=== PATIENT | female | born 1950 | race American Indian/Alaskan Native ===

== ENCOUNTER 2020-08-14 22:37 | Inpatient (IN) | payer OTHER ==
[~2020-08-14] VITALS: Ht 167.6 cm; Wt 73.9 kg
--- NOTE | ~2020-08-14 | EMS ---
[address] [address] EMS Patient Care Report Name: NESTOR WILSONANNINE Room #: REG KIRSTEN Mustafa#: [id number] Admission: 08/14/20 Attend Phys: Discharge: Date of : 54 Report #: [id number] THIS REPORT FOR: //name// Report Transmitted: 08/14/2020 23:59 EMS Care Summary [facility] Incident [id number] @ 08/14/2020 21:54 Incident Location [address] [place] [address] Patient NESTOR WILSON Female, 70 Years 1950 Patient Address [address] [place] [address] Patient History Hypertension (HTN),Stroke/CVA, Patient Allergies Other drug allergy, Patient Medications Levothyroxine, Rosuvastatin, Gabapentin, Torsemide, Trulicity, Iron, Metoprolol, Clopidogrel, Chief Complaint Abd pain Disposition Transported No Lights/[place] Dispatch Reason Sick Person Transported To [facility] Units dispatched to the residence of a 70 year old female pt with a chief complaint of abd pain. Upon arrival crew located pt laying on a couch. Pt presented with a patent airway and warm dry skin. Pt on scene stated [facility] [address] [place] [address] EMS Patient Care Report Name: NESTOR WILSON Room #: REG KIRSTEN Mustafa#: [id number] Admission: 08/14/20 Attend Phys: Discharge: Date of : 54 Report #: [id number] that pt had been complaining of abd pain for 5 days. Pt stated she was discharged from a hospital 4 days prior and reported the abd pain started while she was hospitalized. Pt stated that the hospital told her she had a abnormal E-coli level and put her on antibiotics. Pt stated the pain had gotten worse. Pt was placed on stretcher by crew and secured using straps. 3 Lead ECG was applied and pt was monitored for rhythm changes. Pt stated she had been having mobility issues for several months and was no longer able to walk. Pt was unable to pinpoint abd pain. Palpation of abd revealed a soft abd and pt complained of worsened pain when palpating the upper and lower left quadrants. Pt stated that she had been unable to eat or drink anything for the last 4 days as well. Pt was unsure of last bowel movment. Pt rated pain a 6/10 and described it as a "cramping" pain. Pt denied chest pain or SOA. Pt denied recent fever or cough. Pt was transported to [facility] without incident and care was transferred to ED staff. Initial Vitals @22:11P: 94,BP: 152/88,SpO2: 100, @21:59P: 105,BP: 150/85,Pain: 6/10,GCS: 15, @22:29P: 93,BP: 140/81,Pain: 6/10,GCS: 15,SpO2: 99, Assessments @21:59MENTAL:No Abnormalities,SKIN:No Abnormalities,HEENT:Head/Face: No Abnormalities,Eyes: No Abnormalities,Neck/Airway: No Abnormalities,LUNG SOUNDS:General: Nausea,Left Upper: Tenderness,Right Lower: Tenderness,Right Upper: Tenderness,Left Lower: Tenderness,ABDOMEN:General: Nausea,Left Upper: Tenderness,Right Lower: Tenderness,Right Upper: Tenderness,Left Lower: Tenderness,PELVIS//GI:No Abnormalities,EXTREMITIES:Capillary Refill: Right Upper: < 2 Sec,Left Arm: No Abnormalities,Right Arm: No Abnormalities,Left Leg: No Abnormalities,Right Leg: No Abnormalities,PULSE:Radial: 2+ Normal,NEURO:No Abnormalities,@22:20MENTAL:No Abnormalities,SKIN:No Abnormalities,HEENT:Head/Face: No Abnormalities,Eyes: No Abnormalities,Neck/Airway: No Abnormalities,LUNG SOUNDS:General: Nausea,Right Upper: Tenderness,Left Upper: Tenderness,Right Lower: Tenderness,Left Lower: Tenderness,ABDOMEN:General: Nausea,Right Upper: Tenderness,Left Upper: Tenderness,Right Lower: Tenderness,Left Lower: Tenderness,PELVIS//GI:No Abnormalities,EXTREMITIES:Capillary Refill: Right Upper: < 2 Sec,Left Arm: No Abnormalities,Right Arm: No Abnormalities,Left Leg: No Abnormalities,Right Leg: No Abnormalities,PULSE:Radial: 2+ Normal,NEURO:No Abnormalities, Impression Abdominal Pain Procedures @21:59ALS AssessmentResponse: UnchangedSucceeded@22:103-Lead ECGResponse: UnchangedSucceeded [address] [address] EMS Patient Care Report Name: NESTOR WILSON Room #: REG KIRSTEN Mustafa#: [id number] Admission: 08/14/20 Attend Phys: Discharge: Date of : 54 Report #: [id number] Timeline 21:52,Call Received 21:52,Psap Call 21:54,Dispatched 21:56,En Route 21:57,On Scene 21:58,At Patient 21:59,ALS Assessment,Response: UnchangedSucceeded, 21:59,BP: 150/85 M,PULSE: 105,RR: R,SPO2: Ox,ETCO2: ,BG: ,PAIN: 6,GCS: 15, 22:10,3-Lead ECG,Response: UnchangedSucceeded, 22:11,BP: 152/88 M,PULSE: 94,RR: R,SPO2: 100 Ox,ETCO2: ,BG: ,PAIN: ,GCS: , 22:12,Depart Scene 22:29,BP: 140/81 M,PULSE: 93,RR: R,SPO2: 99 Ox,ETCO2: ,BG: ,PAIN: 6,GCS: 15, 22:34,At Destination 22:46,Call Closed Disclaimer v1.1 Copyright 2020 [employer] This EMS Care Summary contains data elements from the applicable legal record (which may be displayed differently). It is designed to provide pertinent information for the following purposes: continuity of care, clinical quality, and state data reporting. The complete legal record is available to ED staff and administrators of the receiving hospital in [facility]'s Patient Tracker. All data is provided "as is."
[2020-08-14 22:37] VITALS: BP 164/84
[~2020-08-14 22:37] MED LIST: ATORVASTATIN CA40 MG PO; FARXIGA5 MG PO; LANTUS100 UNIT/M SUBQ; LEVOTHYROXINE 0.1 MG PO; LOPRESSOR100 M1 PO; MAXZIDE-25 MG1 EACH PO; POTASSIUM20 PO; PRENATAL PLUS1 EACH PO; VALACYCLOVIR1000 MG PO; VITAMIN B-12500 MCG PO
[2020-08-14 23:12] LABS: URINE BILIRUBIN NEGATIVE (Negative); URINE BLOOD 2+ (Negative); URINE CLARITY SL CLOUDY; URINE COLOR YELLOW; URINE GLUCOSE-RANDOM* TRACE (Negative); URINE KETONES NEGATIVE (Negative); URINE PROTEIN (DIPSTICK) 2+ (Negative); URINE SPECIFIC GRAVITY >= 1.030 (1.005-1.035); URINE UROBILINOGEN 0.2 E.U./dl (0.2-1.0)
[2020-08-14 23:14] LABS: URINE LEUKOCYTES-REFLEX 1+ (Negative); URINE NITRITE-REFLEX POSITIVE (Negative)
[2020-08-14 23:16] LABS: HEMATOCRIT 25.3 % (37.0-47.0); HEMOGLOBIN 8.3 gm/dL (12.0-15.0); MCH 32.1 pg (26.0-34.0); MCHC 32.9 g/dL (28.0-37.0); MCV 97.7 fL (80.0-100.0); PLATELET COUNT 217 thou/uL (150-400); RBC 2.59 mil/uL (4.20-5.00); RDW 15.5 % (10.5-14.5); WBC 7.5 thou/uL (4.0-11.0)
[2020-08-14 23:31] LABS: CALCIUM 7.4 mg/dL (8.5-10.1); CASTS None Seen /LPF (None Seen); CREATININE 3.1 mg/dL (0.6-1.0); MAGNESIUM 1.6 mg/dL (1.8-2.4); MUCUS 0-3 Light strn/LPF (None Seen); SQUAMOUS >10 Many /LPF (0-3); TRANSITIONAL EPITHEL CELL >10 Many /LPF (None Seen); URINE WBC-REFLEX >25 Many /HPF (0-5); WBC CLUMPS Moderate (None Seen)
[2020-08-14 23:32] LABS: BACTERIA-REFLEX >30 Many /HPF (None Seen); CRYSTALS None Seen /LPF (None Seen); URINE RBC 3-10 Few /HPF (0-2)
[2020-08-14 23:33] LABS: POTASSIUM 5.3 mmol/L (3.5-5.1)
[2020-08-14 23:42] LABS: ABSOLUTE NEUTROPHILS 6.5 thou/uL (1.4-8.2)
[2020-08-14 23:43] LABS: LARGE PLATELETS OCCASIONAL
[2020-08-15] MEDS ORDERED: GABAPENTIN 100100 MG PO (02:27)
[2020-08-15] MEDS ORDERED: ROSUVASTATIN CA20 MG PO (02:28)
[2020-08-15] MEDS ORDERED: TRULICITY1.5 MG/0.5 SUBQ (02:29)
[2020-08-15] MEDS ORDERED: ECOTRIN325 MG PO (02:29)
[2020-08-15] MEDS ORDERED: LEVO-T100 MCG PO (02:30)
[2020-08-15] MEDS ORDERED: ANTACID650 MG PO (02:31)
[2020-08-15] MEDS ORDERED: TORSEMIDE20 MG PO (02:32)
[2020-08-15] MEDS ORDERED: SLOW FE 160MG160 MG PO (02:33)
[2020-08-15] MEDS ORDERED: COLESTIPOL HCL1 G1 PO (02:34)
[2020-08-15] MEDS ORDERED: CALCIUM ACETAT667 M2 PO (02:34)
[2020-08-15] MEDS ORDERED: ASPIR 8181 MG PO (02:35)
--- NOTE | 2020-08-15 07:18 | EKG ---
[address] [employer] 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: chantell gilliam rn : 1950 Requested By: Royce Gibbs Order Number: [id number] MD: Turner Beasley Measurements Intervals [place] Rate: 90 P: 66 PA: 219 QRS: -46 QRSD: 143 T: 21 QT: 403 QTc: 493 Interpretive Statements Sinus rhythm Borderline prolonged PA interval RBBB and LAFB Compared to ECG 04/15/2007 07:55:13 Left anterior fascicular block now present Right bundle-branch block now present Poor R-wave progression no longer present Electronically Signed On 08-15-2020 7:18:04 DIE SETTER by Turner Beasley [email or web address] <ELECTRONICALLY SIGNED> By: Turner Beasley MD, FACC 08/15/20 0718 2324 [id number] Turner Beasley MD, FAC /EPI
--- NOTE | 2020-08-15 14:34 | NUR ---
70-year-old female who presents to the emergency department this evening with complaints of abdominal pain, decreased appetite, generalized weakness and fatigue at home. She reports that she was recently seen at [facility] and discharged home on 08/10/2020 she was hospitalized for chronic renal failure and the need for hemodialysis. She is supposed to be starting hemodialysis Saturday and Saturday the week of 08-15-2020. She also reports that she was diagnosed with a E. coli infection in her stool and has been on outpatient Cipro treatment. Spouse states he is unable to care for her secondary to a diagnosis of Failure to Thrive along with right side paralysis from a previous stroke. Patient is retired and spouse is Torey Pulliam with home number [phone] and Work number listed as [phone]. Found to have a UTI along with Abdominal pain with GI consulted. Patient had been admitted and GI has ordered for an EGD and Colonoscopy. Of note, COVDI Antigen is negative in the ED patient did undergo an Gastric Bypass in 2007. As patient progresses CM to follow for discharge needs.
[2020-08-15 23:06] LABS: GLYCOHEMOGLOBIN (HGB A1C) 4.5 % (4.8-5.6)
[2020-08-16 05:25] LABS: HEMATOCRIT 24.7 % (37.0-47.0); HEMOGLOBIN 8.1 gm/dL (12.0-15.0); MCH 31.9 pg (26.0-34.0); MCHC 32.6 g/dL (28.0-37.0); MCV 97.7 fL (80.0-100.0); RBC 2.53 mil/uL (4.20-5.00); RDW 15.2 % (10.5-14.5); WBC 5.8 thou/uL (4.0-11.0)
[2020-08-16 05:29] LABS: CALCIUM 7.2 mg/dL (8.5-10.1); MAGNESIUM 1.7 mg/dL (1.8-2.4)
[2020-08-16 05:34] LABS: CREATININE 1.6 mg/dL (0.6-1.0)
[2020-08-16 05:35] LABS: POTASSIUM 2.9 mmol/L (3.5-5.1)
[2020-08-16 06:52] VITALS: BP 153/76
[2020-08-16 07:09] VITALS: BP 136/76
[2020-08-16 08:12] VITALS: BP 150/77
--- NOTE | 2020-08-16 08:45 | NUR ---
assumed care at 0730. 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 pt is a&o x 4. pt has bruises on face and neck. pt has swelling on both arms and feet. lungs and heart sounds are regular. soft abd. IV is intact and shows no signs of redness or swelling. right upper chest is dialysis port and is intact and shows no signs of redness or swelling. pt complains of weakness but denies n/v/d. pt has not have diarrhea in one week. pt denies pain. i have informed dr. chavez regarding critical values. ER informed me with this information. I am not sure if they told the doctor so I have address this information to the doctor along with Cr and Mg level. ra. medical records are being faxed to [facility] per request on order. will continue to monitor pt.
--- NOTE | 2020-08-16 14:47 | NUR ---
WOUND CONSULT; POSSIBLE ABCESS? INDURATION, SWELLING/FLUID? ERYTHEMA WITH TENDERNESS. RECOMMENDATION; CONSULT DR CISSE FOR MEDICAL INTERVENTION. DISCUSSED WITH GEN
--- NOTE | 2020-08-16 15:09 | NUR ---
ASSESSMENT: CM REVIEWED CHART AND SPOKE WITH PT. PT IS ALERT AND ORIENTED X4. PT WAS ADMITTED DUE TO COMPLAINING OF ABDOMINAL PAIN AND HAS HX OF CVA. PT CURRENTLY REFUSED GETTING AN EGD AT THIS TIME. PT LIVES AT HOME WITH HER . PT REPORTS HAVING A RAMP TO ENTER HER HOME. PT STATES SHE HAS A CANE AND WALKER AT HOME WELL A WHEELCHAIR. PT REPORTS THAT HER BEDROOM IS ON THE SECOND LEVEL BUT SHE REPORTS THAT SHE MAINLY STAYS ON THE MAIN LEVEL TO AVOID STEPS. PT REPORTS THAT SHE HAS HAD [facility] IN THE PAST BUT NOT RECENTLY. CM DISCUSSED ROLE. PT WOULD BE WILLING TO POSSIBLE HH BUT STATES SHE WANTS TO SEE HOW SHE PROGRESSES BEFORE A REFERRAL IS SENT. 5N HAS BEEN CONSULTED TO ALSO SEE PATIENT. PT WAS TO START DIALYSIS AT [facility] IN [place] BUT ENDED UP IN THE HOSPITAL. CM FAXED CLINICAL TO [facility] AND AWAITING A CALL BACK. CM WILL CONTINUE TO FOLLOW TO ASSIST NEEDED.
[2020-08-16 17:04] VITALS: BP 152/67
[2020-08-16 20:10] VITALS: BP 141/69
--- NOTE | 2020-08-17 04:00 | NUR ---
PT ALERT AND ORIENTED WITH ALOT OF ANXIETY. BLE 2+ EDEMA.DENIES SOA, NO COUGH. OLIGURIA, ANIBAL TO D/D.SWALLOWS WITH NO DIFFICULTIES.REQUIRES Q2 HR TURNS.REFUSED HER HS TRULICITY STATING LOW BS @ 84.CONTINUES TO LOOK WEAK.
[2020-08-17 05:50] VITALS: BP 161/71
[2020-08-17 06:36] LABS: ALBUMIN 1.6 g/dL (3.4-5.0); CALCIUM 6.7 mg/dL (8.5-10.1); CREATININE 2.2 mg/dL (0.6-1.0); PHOSPHORUS 1.9 mg/dL (2.5-4.9); POTASSIUM 3.8 mmol/L (3.5-5.1)
--- NOTE | 2020-08-17 08:31 | NUR ---
assumed care at 0700. pt is a&o x4. pt has regular heart sounds with diminished lung sounds. pt abd is soft except for the mid abd. there is a hard lump on her abd. asked pt if she knew anything about this. pt denies that she knows anything about it as this is her first time noticing it after me. open sore on buttock and applied zguard. pt is being adjusted q2. IV is intact and shows no signs of redness or swelling. fall precaution. call light within reach. pt denies any pain, nausea, vomitting. pt is a set up. swelling on LLE but thee is no swelling on upper extremity. pt has bruises on face and neck. port on right chest is intact and shows no signs of redness or swelling. RA. VSS. will continue to monitor. SCD hose are in place. low air mattress will be applied to bed today. couldnt get the low air mattress due to outlet. contacted maintenace to come see bed outlets. will continue to monitor
[2020-08-17 08:37] VITALS: BP 143/60
--- NOTE | 2020-08-17 09:33 | NUR ---
Pt seen this am due to positive nutrition admission screen. 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 Pt states her appetite is a million times better and she is eating well. Wt reported at 167# on admit per pt, currently stable at 163#. No PU noted, skin is intact. Pt with no nutritional questions or concerns. Pt is low nutrition risk.
--- NOTE | 2020-08-17 12:00 | NUR ---
ON-GOING ASSESSMENT: CM REVIEWED CHART AND SPOKE WITH ATTENDING WHO REPORTS PT IS NEARING DISCHARGE GOALS. CM SPOKE WITH PT ABOUT POSSIBLE NEED FOR POST ACUTE CARE. PT STATES SHE IS ABSOLUTELY NOT GOING TO A SNF WHERE HER CANNOT VISIT HER AND STATES SHE IS REFUSING THAT. CM NOTIFIED HER THAT SHE MAY QUALIFY FOR 5N ADMISSION BUT SHE WOULD HAVE TO PARTICIPATE WITH THERAPY TO SEE IF SHE IS A CANIDATE AND WOULD BE ALLOWED TO VISIT THERE. PT BECAME TEARFUL STATING SHE IS NOT WANTING TO BE AWAY FROM HOME AND SHE IS WANTING TO GO HOME WITH . CM DISCUSSED THAT PHYSICAL THERAPY RECOMMENDATION WAS FOR POST ACUTE CARE. PT STATES SHE IS WANTING A REFERRAL TO BE SENT TO [facility]. CM FAXED REFERRAL. PT STATING SHE IS WANTING TO LEAVE TOMORROW WITH HOME HEALTH. CM NOTIFIED ATTENDING AND AWAITING INPUT AT THIS TIME.
[2020-08-17 13:47] VITALS: BP 143/60
[2020-08-17 17:41] VITALS: BP 146/58
[2020-08-17 19:45] VITALS: BP 136/77
[2020-08-17 20:20] VITALS: BP 136/77
--- NOTE | 2020-08-18 04:00 | NUR ---
PT SLEPT MOST OF THE NOC.REQUIRES HELP WITH REPOSITIONING.DENIES PAIN. AFEBRILE. DIALYSIS THIS AM. POSSIBLE D/C.
[2020-08-18 08:06] VITALS: BP 156/67
[2020-08-18 11:05] LABS: URINE BILIRUBIN NEGATIVE (Negative); URINE BLOOD TRACE (Negative); URINE CLARITY CLEAR; URINE COLOR YELLOW; URINE GLUCOSE-RANDOM* NEGATIVE (Negative); URINE KETONES NEGATIVE (Negative); URINE LEUKOCYTES TRACE (Negative); URINE NITRITE NEGATIVE (Negative); URINE PROTEIN (DIPSTICK) 2+ (Negative); URINE SPECIFIC GRAVITY 1.015 (1.005-1.035); URINE UROBILINOGEN 0.2 E.U./dl (0.2-1.0)
[2020-08-18 11:27] LABS: SQUAMOUS 0-3 Few /LPF (0-3)
[2020-08-18 11:28] LABS: BACTERIA 1-9 Few /HPF (None Seen); CASTS None Seen /LPF (None Seen); CRYSTALS None Seen /LPF (None Seen); URINE RBC 3-10 Few /HPF (0-2)
[2020-08-18 14:29] VITALS: BP 143/60
--- NOTE | 2020-08-18 14:55 | NUR ---
PT DISCHARGING TODAY TO HOME WITH [facility] FAXED DC ORDERS/SUMMARY SPOKE WITH DEDE IN INTAKE SHE RECEIVED DC ORDERS AND PLAN ON SEEING PT ON SATURDAY AND WILL CALL TO ARRANGE VISIT WITH PT.
--- NOTE | 2020-08-18 15:05 | NUR ---
PT HAS ORDERS TO D/C HOME WITH HH TODAY ([facility]). 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 CM SPOKE WITH PT WHO REPORTS SHE HAS ALL DME NEEDED AT HOME. PT REPORTS NO FURTHER NEEDS FROM CM.
--- NOTE | 2020-08-18 16:35 | NUR ---
Assumed care of pt. at 0700. Pt. is anxious but cooperative. Pt. was cleared for discharge by Dr. Moses. Pt. requested to leave catheter in, this was cleared by Dr. Moses. Pt. was discharged from hospital. It was shortly there after that I realized that the IV had not been removed from SADIA. Torey contacted, he stated that he was using the [facility] Department to transport the pt. back into her home and that they could remove the IV. Nursing supervisor whipped topping Thelma contacted about issue and confirmed that this would be an acceptable process as long as it was confirmed with [facility] that it had been removed. [facility] contacted, fire deputyoel Caldwell answered and stated that [employer] [facility] would be removing IV. [facility] called me and confirmed over the phopne that he had remoced the 22G IV from Left Upper Arm of pt. at 1600.
[2020-08-19 03:06] LABS: HEPATITIS B SURFACE AG Negative (Negative)
--- NOTE | 2020-08-22 11:21 | HC ---
[facility] [place] [address] CONSULTATION Name: NESTOR CHAPA Room #: 444-P [facility] IN M.R.#: [id number] Admission: 08/15/20 Attend Phys: Darian Witt MD Discharge: 08/18/20 Date of : 54 Report #: [id number] THIS REPORT FOR: cc: Shaunna Hebert Christine L. DO Stephens, Thad A. MD ~ DATE OF SERVICE: 08/17/2020 WOUND CARE CONSULTATION PERSONAL PHYSICIAN: Dr. Shaunna Hebert. CHIEF COMPLAINT: Gluteal ulcer. HISTORY OF PRESENT ILLNESS: This is a 70-year-old white female with past medical history of coronary artery disease, end-stage renal disease, on hemodialysis, peripheral neuropathy, who was admitted to the hospital with generalized weakness and abdominal pain. The patient is currently being seen by the GI service as well as Nephrology. Wound care nurse had been notified about an ulcer noted on admission that she was concerned about being a possible abscess; however, we have been consulted to evaluate the patient. The patient denies any other associated wounds. The patient denies any associated pain. PAST MEDICAL HISTORY: Significant for diabetes; hypertension; end-stage renal disease, on hemodialysis; gastroesophageal reflux disease; previous CVA; coronary artery disease with stents; status post gastric bypass. CURRENT MEDICATIONS: Multiple, I reviewed the patient's medication list. DRUG ALLERGIES: MILK, MYCINS. SOCIAL HISTORY: The patient does not smoke or drink alcohol. FAMILY HISTORY: Not pertinent to current medical condition. REVIEW OF SYSTEMS: CONSTITUTIONAL: The patient denies fevers or chills. NEUROLOGIC: The patient denies numbness, tingling, weakness in arms or legs. EYES: No complaints. ENT: No complaints. CARDIAC: The patient has chronic lower extremity edema, but denies chest pain or palpitations. RESPIRATORY: The patient denies shortness of breath, cough or wheezes. GASTROINTESTINAL: The patient denies nausea, vomiting, abdominal pain at this time; however, has had abdominal pain chronically. [facility] [address] [place] [address] CONSULTATION Name: MAGGIE CHAPAORAShonda Barrientos Room #: 444-P [facility] IN M.R.#: [id number] Admission: 08/15/20 Attend Phys: Darian Witt MD Discharge: 08/18/20 Date of : 54 Report #: [id number] GENITOURINARY: The patient denies urgency or frequency. MUSCULOSKELETAL: No complaints. SKIN: There is a stage 3 ulcer to her left buttock. PHYSICAL EXAMINATION: VITAL SIGNS: Temperature 36.8, pulse 89, respirations 18, BP 143/60. GENERAL: This is an alert and oriented x 3, obese white female who is in no obvious distress. HEENT: Normocephalic, atraumatic. Mucous membranes are somewhat dry. Pupils are round. Sclerae white. NECK: Without JVD. LUNGS: Slightly diminished breath sounds heard throughout. HEART: Regular. ABDOMEN: Obese, soft, nontender. Evaluation of left gluteal region reveals a stage 3 decubitus ulcer, which is clean and granulating. Periwound is otherwise intact. There is minimal serosanguineous drainage noted without odor. There are no signs of erythema, warmth or cellulitis. EXTREMITIES: The patient moves all extremities without difficulty. Bilateral heels are intact. NEUROLOGIC: Cranial nerves 2-12 are grossly intact. The patient does have right sided weakness, which is mild. LABORATORY DATA: White count 5.8, hemoglobin 8.1, BUN 18, creatinine 2.2, albumin 1.6. IMPRESSION: 1. Stage 3 decubitus ulcer, left buttock without signs of infection. 2. History of abdominal pain with recent Escherichia coli infection. 3. End-stage renal disease. 4. Hypothyroidism. 5. Hypertension. 6. Diabetes mellitus type 2. 7. History of cerebrovascular accident with right-sided weakness. 8. Severe protein-calorie malnutrition with an albumin of 1.6. PLAN: We will start Z-Guard to the pressure ulcer and leave open to air, changes twice daily and p.r.n. We will put the patient on low air loss mattress and have her turned every 2 hours. We will make sure we maximize patient's oral protein supplementation for healing. PT and OT will be consulted to help with the patient's strengthening and ADLs. Please continue all other current medications. <ELECTRONICALLY SIGNED> By: Blu Chandler MD 08/22/20 1121 1800 57 Blu Chandler MD /nt
== END 2020-08-18 15:32 | disposition home health service (06) | DRG 371 ==
LOC: ER 22:37 → 4S 08-15 00:34 → EROBS 08-15 00:34 → 4S 08-16 07:17
PROVIDERS: Emergency Medicine; Internal Medicine; Internal Medicine Nephrology; Nurse Practitioner Family; ADMIT Internal Medicine; ATTEND Internal Medicine
PROC: 5A1D70Z Performance of Urinary Filtration, Intermittent, Less than 6 Hours Per Day (ICD-10-PCS; principal; 2020-08-15)
PROC: 5A1D70Z Performance of Urinary Filtration, Intermittent, Less than 6 Hours Per Day (ICD-10-PCS; 2020-08-18)
DX: A04.4 Other intestinal Escherichia coli infections (principal); L89.323 Pressure ulcer of left buttock, stage 3; N18.6 End stage renal disease; E43 Unspecified severe protein-calorie malnutrition; N39.0 Urinary tract infection, site not specified; I69.351 Hemiplegia and hemiparesis following cerebral infarction affecting right dominant side; I12.0 Hypertensive chronic kidney disease with stage 5 chronic kidney disease or end stage renal disease; Z20.828 Contact with and (suspected) exposure to other viral communicable diseases; E03.9 Hypothyroidism, unspecified; Z91.011 Allergy to milk products; K21.9 Gastro-esophageal reflux disease without esophagitis; E11.22 Type 2 diabetes mellitus with diabetic chronic kidney disease; R62.7 Adult failure to thrive; D63.8 Anemia in other chronic diseases classified elsewhere; E78.5 Hyperlipidemia, unspecified; K27.9 Peptic ulcer, site unspecified, unspecified as acute or chronic, without hemorrhage or perforation; I25.10 Atherosclerotic heart disease of native coronary artery without angina pectoris; E11.42 Type 2 diabetes mellitus with diabetic polyneuropathy; Z90.710 Acquired absence of both cervix and uterus; Z90.49 Acquired absence of other specified parts of digestive tract; Z90.721 Acquired absence of ovaries, unilateral; Z88.8 Allergy status to other drugs, medicaments and biological substances; Z88.1 Allergy status to other antibiotic agents; Z98.84 Bariatric surgery status; Z68.26 Body mass index [BMI] 26.0-26.9, adult; Z95.5 Presence of coronary angioplasty implant and graft; Z79.82 Long term (current) use of aspirin; Z79.899 Other long term (current) drug therapy; Z99.2 Dependence on renal dialysis
CPT/HCPCS: 10195; 32100

== ENCOUNTER 2020-12-13 09:39 | Inpatient (IN) | payer OTHER ==
[~2020-12-13] VITALS: Ht 167.6 cm; Wt 68.5 kg
[~2020-12-13 09:39] MED LIST changes: +ANTACID650 MG PO; +ASPIR 8181 MG PO; +CALCIUM ACETAT667 M2 PO; +COLESTIPOL HCL1 G1 PO; +ECOTRIN325 MG PO; +GABAPENTIN 100100 MG PO; +LEVO-T100 MCG PO; -LOPRESSOR100 M1 PO; +METOPROLOL SUCC50 MG PO; +ROSUVASTATIN CA20 MG PO; +SLOW FE 160MG160 MG PO; +TORSEMIDE20 MG PO; +TRULICITY1.5 MG/0.5 SUBQ
[2020-12-13 09:40] VITALS: BP 157/70
[2020-12-13 10:18] LABS: ABSOLUTE NEUTROPHILS 6.3 thou/uL (1.4-8.2); BASOPHILS 0.9 % (0.0-2.0); EOSINOPHILS 2.2 % (0.0-3.0); HEMATOCRIT 29.7 % (37.0-47.0); HEMOGLOBIN 9.6 gm/dL (12.0-15.0); LYMPHOCYTES 12.6 % (24.0-44.0); MCH 32.9 pg (26.0-34.0); MCHC 32.3 g/dL (28.0-37.0); MCV 101.9 fL (80.0-100.0); MONOCYTES 8.8 % (1.0-8.0); PLATELET COUNT 190 thou/uL (150-400); POLYS 75.5 % (36.0-66.0); RBC 2.92 mil/uL (4.20-5.00); RDW 18.8 % (10.5-14.5); WBC 8.4 thou/uL (4.0-11.0)
[2020-12-13 10:26] LABS: ANION GAP 13 mmol/L (7-16); BUN 60 mg/dL (7-18); CALCIUM 6.8 mg/dL (8.5-10.1); CHLORIDE 114 mmol/L (98-107); CO2 18 mmol/L (21-32); CREATININE 3.5 mg/dL (0.6-1.0); GLUCOSE 78 mg/dL (74-106); POTASSIUM 3.8 mmol/L (3.5-5.1); SODIUM 145 mmol/L (136-145)
[2020-12-13 10:26] LABS: URINE BILIRUBIN NEGATIVE (Negative); URINE BLOOD TRACE (Negative); URINE CLARITY CLEAR; URINE COLOR YELLOW; URINE GLUCOSE-RANDOM* NEGATIVE (Negative); URINE KETONES NEGATIVE (Negative); URINE NITRITE-REFLEX NEGATIVE (Negative); URINE PROTEIN (DIPSTICK) 1+ (Negative); URINE UROBILINOGEN 0.2 E.U./dl (0.2-1.0)
[2020-12-13 10:29] LABS: URINE LEUKOCYTES-REFLEX 3+ (Negative)
[2020-12-13 10:36] LABS: ALBUMIN 1.8 g/dL (3.4-5.0); SGOT 17 U/L (15-37); SGPT 11 U/L (14-59); TOTAL BILIRUBIN 0.3 mg/dL (0.2-1.0); TOTAL PROTEIN 5.2 g/dL (6.4-8.2); TROPONIN-I <0.06 ng/mL (<0.06)
[2020-12-13 10:44] LABS: SQUAMOUS 0-3 Few /LPF (0-3); URINE WBC-REFLEX >25 Many /HPF (0-5); YEAST-REFLEX Present (None Seen)
[2020-12-13 10:45] LABS: BACTERIA-REFLEX 1-9 Few /HPF (None Seen); CASTS None Seen /LPF (None Seen); CRYSTALS None Seen /LPF (None Seen); MUCUS 0-3 Light strn/LPF (None Seen); URINE RBC 1-2 Rare /HPF (NONE SEEN)
[2020-12-13 11:24] LABS: PLATELET ESTIMATE NORMAL
[2020-12-13 11:25] LABS: ANISOCYTOSIS 2+; MACROCYTES 1+
[2020-12-13 12:13] VITALS: BP 143/79
[2020-12-13 12:27] VITALS: BP 119/63
[2020-12-13 12:30] VITALS: BP 94/71
--- NOTE | 2020-12-13 14:48 | NUR ---
ASSUMED CARE OF PATIENT AT 1300 AFTER ARRIVAL FROM ED. SYSTEMS ASSESSMENT COMPLETED BY CHARGE NURSE. EDUCATION AND HX COMPLETED ALONG W REST OF ADMISSION. SPOUSE AT BEDSIDE. IV FLUIDS INFUSING ON L W NO ISSUES. IV ATIVAN ADMINISTERED PER ANXIETY. SEEN BY DR. JUDD; NO NEW ORDERS. WILL CONTINUE TO MONITOR AND FOLLOW PLAN OF CARE
[2020-12-13 15:06] VITALS: BP 185/103
--- NOTE | 2020-12-13 16:03 | EKG ---
[address] [place] [address] ELECTROCARDIOGRAM REPORT Name: ARLETHARASELI WILSONNESTOR Floyd Room #: 452-P ADM IN .R.#: [id number] Admission: 12/13/20 Attend Phys: Reid Smyth MD Discharge: Date of : 54 Report #: [id number] [facility] ED Test Date: 2020-12-13 Test Time: 10:36:22 Pat Name: NESTOR WILSON Department: Room: [facility] Gender: F Employee Welfare Manager: mirtha : 1950 Requested By: Judd Choe Order Number: [id number] MD: Antonio Ball Measurements Intervals [place] Rate: 102 P: 0 [place]: 195 QRS: -68 QRSD: 132 T: 0 QT: 385 QTc: 502 Interpretive Statements Sinus tachycardia Paired ventricular premature complexes Right bundle branch block Anterior infarct, age indeterminate Baseline wander in lead(s) V1 Compared to ECG 08/14/2020 23:24:45 Ventricular premature complex(es) now present Anterior Q waves are now present Electronically Signed On 12-13-2020 16:03:24 CDT by Antonio Ball [email or web address] <ELECTRONICALLY SIGNED> By: Antonio Ball MD, [facility] 12/13/20 1603 1036 1036 Antonio Ball MD, [facility] /EPI
[2020-12-13 23:08] VITALS: BP 146/63
--- NOTE | 2020-12-14 03:41 | NUR ---
PATIENT AOX2 CONFUSED AND FORGETFUL. PATIENT INCONTIENT OF BOWEL PERICARE, CATH CARE DONE NEEDED. BARRIER CREAM APPLIED NEEDED. PATIENT URINE IS YELLOW IN COLOR NO ODOR. PATIENT ENCOURAGED FLUIDS. PATIENT TURNED Q 2 HOURS. PATIENT ON 1 L OF OXYGEN PER NC NO SOA OR DISTRESS NOTED NEEDED. FALL PRECAUTION IN PLACE. PATIENT IN BED ASLEEP AT THIS BREATHING REGULAR AND UNLABOURED.
[2020-12-14 05:09] LABS: HEMATOCRIT 25.1 % (37.0-47.0); HEMOGLOBIN 7.9 gm/dL (12.0-15.0); MCH 32.3 pg (26.0-34.0); MCHC 31.6 g/dL (28.0-37.0); MCV 102.2 fL (80.0-100.0); RBC 2.46 mil/uL (4.20-5.00); RDW 18.8 % (10.5-14.5); WBC 6.7 thou/uL (4.0-11.0)
[2020-12-14 05:15] LABS: CALCIUM 6.2 mg/dL (8.5-10.1); CREATININE 3.2 mg/dL (0.6-1.0); POTASSIUM 3.5 mmol/L (3.5-5.1)
[2020-12-14 08:00] VITALS: BP 164/80
--- NOTE | 2020-12-14 11:31 | NUR ---
PT ADMITTED RELATED TO TREY,UTI. CM REVIEWED CHART AND SPOKE WITH CARE TEAM. CM MET WITH PT AND SPOUSE AT BEDSIDE THIS DAY. PT APPEARED TO BE SLEEPING DURING ASSESSMENT AND SPOUSE ANSWERED ALL QUESTIONS. HE INDICATED THAT THEY RESIDE IN A HOUSE WITH A RAMP TO ENTER AND NO STEPS PT NEEDS TO NAVIGATE INSIDE. SPOUSE INDICATED THAT THEY HAVE DME IN THE HOME SETTING THAT THEY ARE ABLE TO UTILIZE. SPOUSE INDICATED THAT THEY HAVE [facility] FOLLOWING FOR PT'S CATHETER CARE IN THE HOME SETTING. CARE TEAM INDICATED PT MAY BE MEDICALLY SATBLE TO DC TOMORROW HOME WITH SERVICES. DR. SON FOLLOWING.
--- NOTE | 2020-12-14 18:32 | NUR ---
Assumed pt care at 7am.Pt in bed most of the time with spouse at bs visiting and assisting with care.Assessment completed.vss. Pt sometimes cries and very demanding but always help with her demand.Dr Smyth here,order noted. Fall bundle in place and pt encouraged to call for needs.Will continue to monitor.
[2020-12-14 19:23] VITALS: BP 127/80
[2020-12-14 23:17] VITALS: BP 127/80
--- NOTE | 2020-12-15 04:51 | NUR ---
PT AOX3, TO PERSON, PLACE, AND TIME. UPON SHIFT ASSESSMENT, PT DENIES PAIN AND SOB WHILE ON 2L O2 VIA NC. PT HAS PRN PO APAP Q4HR AVAILABLE. PT TOLERATING PO INTAKE OF FLUIDS AND REGULAR DIET WITHOUT ISSUE. PT WITHOUT NAUSEA OR EMESIS. ROMO REMAINS IN PLACE, PATENT WITH SECUREMENT DEVICE. PT RESTING IN BED THROUGHOUT SHIFT, FREQUENT REPOSITIONING ENCOURAGED, REPOSITIONING ASSISTANCE PROVIDED. SMALL SORE NOTED TO LEFT GLUTEAL CLEFT, REPORTED EXCORIATION ON SHIFT REPORT, BARRIER CREAM APPLIED. PT REPORTS NUMBNESS AND TINGLING TO RIGHT SIDE OF BODY. +2 EDEMA NOTED TO RUE, BLE, AND BOTH FEET. CAPILLARY REFILL LESS THAN 3SEC IN ALL EXTREMITIES, FAINT PERIPHERAL PULSES PALPABLE. PT ENCOURAGED TO NOTIFY STAFF FOR ALL NEEDS, CALL LIGHT WITHIN REACH, BED ALARM ON, BED LOCKED IN LOWEST POSITION, ROOM REMAINS NEAR NURSES STATION, FREQUENT MONITORING WILL CONTINUE.
[2020-12-15 07:17] VITALS: BP 134/52
[2020-12-15 08:00] VITALS: BP 92/48
[2020-12-15] MEDS ORDERED: SEROQUEL 25 MG25 M1 PO ×2 (08:54)
[2020-12-15 11:10] VITALS: BP 134/52
--- NOTE | 2020-12-15 11:28 | NUR ---
Assumed pt care at 7am.Pt in bed resting and waiting for breakfast.Assessment completed.vss but blood sugar was 49. 240ml apple juice given prior to breakfast tray arrival.Blood sugar taken after breakafst was 109. Am meds given and well tolerated.Dr Smyth here,dc order noted.Dc summary compile. Will review with pt prior to dc home with [facility] today. at bs visiting.Fall bundle in place.Will continue to monitor.
--- NOTE | 2020-12-15 11:38 | NUR ---
CARE TEAM INDICATED THAT PT IS MEDICALLY STABLE TO DISCHARGE HOME WITH RESUMPTION FOR HH SERVICES AND OP TELEHEALTH PSYC RESORUCES. CM MET WITH PT AND SPOUSE THIS AM AND THEY ARE AWARE AND AGREEABLE. PT HAD BEEN ON SERVICE WITH [facility] AND THEY WOULD LIKE TO RESUME SERVICES. CM NOTIFIED [facility]. CM TO FAX ORDERS ONCE COMPLETED. CM MET WITH PT AND SPOUSE AND ASKED HOW THEY PLANNED TO GET HOME THIS DAY. SPOUSE INDICATED THAT LONG WE CAN ASSIST WITH GETTING PT INTO HIS CAR HE WILL TRANSPORT HER HOME AND USE FIRE DEPAREMENT TO ASSIST INTO HOME. CM OFFERED TO [facility]SP[facility] AND PT REFUSED INDICATIONG SHE DIDN'T WANT STRANGERS IN HER HOME. CM PROVIDED INFO FOR [facility]ABL[facility] CARES WITH [facility]. NO OTHER CM INTERVENTION INDICATED. CASE CLOSED.
[2020-12-15 12:20] VITALS: BP 134/52
--- NOTE | 2020-12-16 20:41 | HC ---
[facility] [place] [address] CONSULTATION Name: NESTOR CHAPA Room #: 452-P [facility] IN .R.#: [id number] Admission: 12/13/20 Attend Phys: Itzel Smyth MD Discharge: 12/15/20 Date of : 54 Report #: [id number] THIS REPORT FOR: cc: Shaunna Hebert Christine L. DO Kerstein, Andrew H. DO ~ DOC #: [id number] ITZEL Billingsley DO DATE OF SERVICE: 12/13/2020 PRIMARY ATTENDING: Itzel Smyth MD CONSULTING PSYCHIATRIST: Itzel Billingsley DO Assisted by nurse practitioner student. SOURCES OF INFORMATION: Interview with the patient at bedside, collateral from who was present, emergency room notes, conversation with Dr. Smyth. CHIEF COMPLAINT: "I came here because I have been having a hard time breathing because I am using oxygen." HISTORY OF PRESENT ILLNESS: This is a 70-year-old female who presents with complaint of need for oxygen in the ER, urinary tract infection, bilateral lower extremity edema was found. The patient was seen in her room. She stated that her anxiety is increased because she needs oxygen. She reports she has been coming to the hospital because she has been having COVID symptoms, difficulty breathing and "gas pain." The patient was a medical admission last month at [facility] because of anxiety and not being able to breathe. Reportedly, she had blamed Primo Caruso for not receiving this COVID vaccine on time. She reported that she had received a COVID vaccine this month. Since then, her symptoms have worsened, especially her breathing. She denies a history of respiratory illness including COPD. According to , the patient was previously on dialysis for approximately a year and a half ago, was taken off dialysis by her collar baster, Dr. Stephens who also told her she could take a diuretic as needed. The patient states she did dialysis for 3-1/2 months about a year and a half ago. It was also reported by the patient and her spouse prior to discharge from [facility], they requested for oxygen going home, but was declined. She stated that her primary care physician, Dr. Shaunna Hebert then did oxygen testing on her for a night, which then prompted oxygen use at home. The patient reports history of anemia and suspect she has Parkinson's disease, but this has not been diagnosed. FAMILY HISTORY: Otherwise her mother and grandmother had Parkinson's disease. [address] [address] CONSULTATION Name: NESTOR CHAPA Room #: 452-P [facility] IN ..#: [id number] Admission: 12/13/20 Attend Phys: Itzel Smyth MD Discharge: 12/15/20 Date of : 54 Report #: [id number] SURGICAL HISTORY: History of kidney biopsy. The patient states she wants to get a good night's sleep. Denies past psychiatric hospitalizations. Remote counseling with her . REVIEW OF SYSTEMS: A 10-point review of systems was negative except for musculoskeletal weakness and bilateral lower extremity edema. The patient did report depression in the past and past suicidal ideation. She stated she wanted to slit her wrists because she was so depressed, but never acted on it. MEDICAL HISTORY: Gastroesophageal reflux disease, hypertension, hyperlipidemia, and diabetes mellitus. PAST SURGICAL HISTORY: Gastric bypass 2007, cardiac stents placed and renal biopsy. SOCIAL HISTORY: Lives at home with her spouse. Denies history of alcohol, tobacco or recreational drug use. Employment, has to work for [employer], retired in 2009. She denied physical, sexual or emotional abuse history. She reports college education. No history of service. LABORATORY DATA: Done in the ER today, H and H low at 9.6 and 29.7, white count normal at 8.4, platelet count normal at 190. Coags done. D-dimer was 1.97, which was quantitative which was considered high. Chemistries: Sodium 145, potassium 3.8, chloride 114, bicarbonate 18, anion gap 13, BUN 60, creatinine 3.5, estimated GFR 13, glucose 78. Point of care, glucose 62, estimated average glucose 82. Hemoglobin A1c 4.5. The A1c was done 08/15/2020. Calcium low at 6.8. Other recent labs, total bilirubin 0.3, AST 17, ALT 11, alkaline phosphatase 116. NT-proBNP 13,844, total protein 5.2, albumin 1.8, which was low. Urinalysis, 1+ protein, trace blood, 3+ leukocyte esterase, greater than 25 wbc's per high power field, moderate clumps, greater than 10 epithelial cells, 1-9 bacteria, yeast were present. There was no urine drug screen done. IMAGING: Done today was a chest x-ray which showed no acute cardiopulmonary abnormality. PHYSICAL EXAMINATION: VITAL SIGNS: Temperature 36.5, pulse 95, respirations 18, BP high at 185/103 at 3:00 p.m. today. Ambulation was not tested. Lying supine in hospital bed. MSE: This is a well-developed, ill-appearing female appearing older than stated age. Attention fair, concentration limited. Speech soft, normal rate. Thought process: Linear and goal directed. Thought content focused on her somatic concerns. Some psychomotor agitation. Wearing oxygen, no psychomotor retardation. Denied suicidal intent or plan. Denied homicidal intent or plan. Denied auditory, visual, or tactile hallucinations. [facility] [address] [place] [address] CONSULTATION Name: NESTOR CHAPA Room #: 452-P [facility] IN ..#: [id number] Admission: 12/13/20 Attend Phys: Itzel Smyth MD Discharge: 12/15/20 Date of : 54 Report #: [id number] affect, stated that she was no longer anxious because she had oxygen on, somewhat incongruent, anxious appearing, constricted affect I would say. Memory not formally tested. Insight limited. Judgment limited. Fund of knowledge above average. FORMULATION AND PLAN: A 70-year-old female medically admitted for acute kidney injury and UTI with culture pending. DIAGNOSES: At this time, unspecified anxiety; rule out delusional disorder, somatoform type. Comorbidities including acute on chronic renal injury, hypertension. RECOMMENDATIONS: I have discussed with the patient and her the use of psychotropic medications. I will offer them scheduled medication throughout the day for anxiety versus the current dose [address] Smyth. I ordered a 25 mg at bedtime, Seroquel dose. Certainly 25-50 mg q.4 h. p.r.n. of Seroquel may be used or Ativan. I did discuss with Dr. Smyth if the patient is not objectively requiring oxygen, I would not prescribe home oxygen or continued oxygen in the hospital just to placate her emotional need. The patient is reporting symptoms following COVID-19 illness. Post-COVID syndrome can be quite varied in symptomatology, sounds like the patient is requiring a lot of caregiving. She has an indwelling Gan catheter. Reports having a home health. I am also curious about the actual involvement of Dr. Shaunna Hebert in her case. I doubt the patient will want a voluntary psychiatric hospitalization, but the offer certainly would be there. We will continue to follow along this patient with you. I am seeing her Saturday a.m. Time is spent on this dictation 45 minutes. Also, we will follow along with you. [place] you for allowing me to particpate in this patient's care. DO SARAH MoralezK/SHERI/TAJ <ELECTRONICALLY SIGNED> By: Itzel Billingsley DO 12/16/20 [id number] Itzel Billingsley DO /nt
[2020-12-17 11:34] LABS: ESTIMATED AVERAGE GLUCOSE < 74; GLYCOHEMOGLOBIN (HGB A1C) < 4.2
== END 2020-12-15 19:49 | disposition home health service (06) | DRG 682 ==
LOC: ER 09:39 → EROBS 11:29 → 4W 11:29
PROVIDERS: Emergency Medicine; ADMIT Hospitalist; ATTEND Hospitalist
DX: N17.9 Acute kidney failure, unspecified (principal); E43 Unspecified severe protein-calorie malnutrition; I12.0 Hypertensive chronic kidney disease with stage 5 chronic kidney disease or end stage renal disease; N39.0 Urinary tract infection, site not specified; N18.5 Chronic kidney disease, stage 5; F45.0 Somatization disorder; E11.22 Type 2 diabetes mellitus with diabetic chronic kidney disease; E03.9 Hypothyroidism, unspecified; E78.5 Hyperlipidemia, unspecified; F41.9 Anxiety disorder, unspecified; E87.70 Fluid overload, unspecified; Z20.822 Contact with and (suspected) exposure to COVID-19; R53.81 Other malaise; Z91.15 Patient's noncompliance with renal dialysis; Z88.8 Allergy status to other drugs, medicaments and biological substances; Z91.011 Allergy to milk products; Z95.5 Presence of coronary angioplasty implant and graft
CPT/HCPCS: 10047